=== PATIENT | female | born 1950 | race Caucasian/White ===

== ENCOUNTER 2020-07-04 23:14 | Inpatient (IN) ==
[2020-07-04] MEDS ORDERED: Nitroglycerin 0.4 MG TAB.SUBL SL ONE (23:39)
[2020-07-04 23:44] LABS: Basophils # 0.1 K/mcL (0.0-0.2); Basophils % 0.8 %; Eosinophils # 0.2 K/mcL (0.0-0.6); Eosinophils % 2.5 %; Hematocrit 39.1 % (35.3-44.9); Hemoglobin 12.3 g/dL (11.5-15.4); Immature Granulocytes % 0.1 % (0-4); Lymphocytes # 2.3 K/mcL (0.6-4.6); Lymphocytes % 29.4 %; Mean Corpuscular HGB Conc 31.5 g/dL (31.6-35.5); Mean Corpuscular Hemoglobin 29.1 pg (28.0-33.3); Mean Corpuscular Volume 92.7 fL (83.0-100.0); Mean Platelet Volume 9.6 fL (9.4-12.4); Monocytes # 0.6 K/mcL (0.0-1.3); Monocytes % 7.5 %; Neutrophils # 4.6 K/mcL (1.6-8.9); Platelet Count 216 K/mcL (140-400); Red Blood Count 4.22 M/mcL (3.82-4.97); Red Cell Distribution Width 13.3 % (11.5-14.5); Segmented Neutrophils % 59.7 %; White Blood Count 7.7 K/mcL (4.3-11.1)
[2020-07-05 00:02] LABS: BUN/Creatinine Ratio 21 (6-26); Blood Urea Nitrogen 19 mg/dL (8-23); Calcium 9.1 mg/dL (8.6-10.3); Carbon Dioxide 24 mEq/L (23-29); Chloride 105 mEq/L (98-107); Glucose 125 mg/dL (70-105); Osmolality,Calculated 288 (280-300); Potassium 5.3 mEq/L (3.5-5.1); Sodium 137 mEq/L (136-145); Troponin I < 0.03 ng/mL (< 0.04); eGFR For African Americans > 60 (> 60); eGFR For Non-African Americans > 60 (> 60)
[2020-07-05] MEDS ORDERED: *HR* HYDROcodone/Acet 5/325 mg TABLET PO PRN (01:52)
[2020-07-05] MEDS ORDERED: Ondansetron 4 MG/2 ML VIAL IVP PRN (01:52)
[2020-07-05] MEDS ORDERED: Acetaminophen 325 MG TABLET PO PRN (01:52)
[2020-07-05] MEDS ORDERED: Naloxone 0.4 MG/ML INJ IVP PRN (01:52)
[2020-07-05] MEDS ORDERED: *HR* OxyCODONE Immed Rel 5 MG TABLET PO PRN (01:52)
[2020-07-05] MEDS ORDERED: Melatonin 3 MG TABLET PO PRN (01:52)
[2020-07-05] MEDS ORDERED: Furosemide 20 MG/2 ML VIAL IVP ONE (03:17)
[2020-07-05 05:17] LABS: Basophils % 0.5 %; Eosinophils # 0.1 K/mcL (0.0-0.6); Eosinophils % 1.5 %; Hematocrit 37.2 % (35.3-44.9); Hemoglobin 11.8 g/dL (11.5-15.4); Immature Granulocytes % 0.2 % (0-4); Lymphocytes # 1.6 K/mcL (0.6-4.6); Lymphocytes % 27.8 %; Mean Corpuscular HGB Conc 31.7 g/dL (31.6-35.5); Mean Corpuscular Hemoglobin 29.2 pg (28.0-33.3); Mean Corpuscular Volume 92.1 fL (83.0-100.0); Mean Platelet Volume 9.6 fL (9.4-12.4); Monocytes # 0.5 K/mcL (0.0-1.3); Monocytes % 7.8 %; Neutrophils # 3.7 K/mcL (1.6-8.9); Platelet Count 181 K/mcL (140-400); Red Blood Count 4.04 M/mcL (3.82-4.97); Red Cell Distribution Width 13.3 % (11.5-14.5); Segmented Neutrophils % 62.2 %; White Blood Count 5.9 K/mcL (4.3-11.1)
[2020-07-05 05:23] LABS: Prothrombin Time 11.9 Seconds (9.4-12.1)
[2020-07-05 05:35] LABS: BUN/Creatinine Ratio 23 (6-26); Blood Urea Nitrogen 19 mg/dL (8-23); Calcium 9.4 mg/dL (8.6-10.3); Carbon Dioxide 26 mEq/L (23-29); Chloride 106 mEq/L (98-107); Chol/HDL Ratio 3.1 (0-4.9); Cholesterol 134 mg/dL (< 200); Glucose 105 mg/dL (70-105); HDL Cholesterol 43 mg/dL (40-59); LDL Cholesterol,Calculated 75 mg/dL (< 100); Osmolality,Calculated 291 (280-300); Phosphorous 3.7 mg/dL (2.7-4.5); Potassium 4.1 mEq/L (3.5-5.1); Sodium 139 mEq/L (136-145); Triglycerides 80 mg/dL (< 150); eGFR For African Americans > 60 (> 60); eGFR For Non-African Americans > 60 (> 60)
[2020-07-05 05:38] LABS: Troponin I 0.31 ng/mL (< 0.04)
[2020-07-05] MEDS ORDERED: *HR* Heparin 5,000 UNIT/ML VIAL IVP ONE (05:41)
[2020-07-05] MEDS ORDERED: *HR* Heparin 5,000 UNIT/ML VIAL IVP PRN ×2 (05:41)
[2020-07-05] MEDS ORDERED: Perflutren Lipid Microsphere 1.3 ML in 0.9 % Sodium Chloride 8.7 ML IVP PRN (05:43)
[2020-07-05] MEDS: Heparin 25,000UNIT/250ML 1/2NS 25,000 UNIT/250 ML IV.SOLN IVC SCH (06:16)
[2020-07-05] MEDS: Aspirin Enteric Coated 81 MG Tablet PO SCH (10:14)
[2020-07-05] MEDS: carvediloL 6.25 MG TABLET PO SCH ×2 (10:14→17:13)
[2020-07-05] MEDS: Gabapentin 100 MG CAPSULE PO SCH ×3 (10:14→20:33)
[2020-07-05] MEDS ORDERED: Gabapentin 100 MG CAPSULE PO SCH (15:00)
[2020-07-05 16:03] LABS: Estimated Average Glucose 128 mg/dl; Hemoglobin A1C 6.1 %
[2020-07-05] MEDS ORDERED: carvediloL 6.25 MG TABLET PO SCH (17:00)
[2020-07-06] MEDS: carvediloL 6.25 MG TABLET PO SCH ×2 (09:18→16:21)
[2020-07-06] MEDS: Gabapentin 100 MG CAPSULE PO SCH ×3 (09:18→21:20)
[2020-07-06] MEDS: Aspirin Enteric Coated 81 MG Tablet PO SCH (09:18)
[2020-07-06] MEDS ORDERED: *HR* LORazepam 0.5 MG TABLET PO SCH (21:00)
[2020-07-06] MEDS: Heparin 25,000UNIT/250ML 1/2NS 25,000 UNIT/250 ML IV.SOLN IVC SCH (23:58)
[2020-07-07 08:54] LABS: Basophils % 0.7 %; Eosinophils # 0.2 K/mcL (0.0-0.6); Eosinophils % 2.7 %; Hematocrit 39.9 % (35.3-44.9); Immature Granulocytes % 0.2 % (0-4); Lymphocytes # 1.4 K/mcL (0.6-4.6); Lymphocytes % 24.3 %; Mean Corpuscular HGB Conc 32.6 g/dL (31.6-35.5); Mean Corpuscular Hemoglobin 29.5 pg (28.0-33.3); Mean Corpuscular Volume 90.7 fL (83.0-100.0); Mean Platelet Volume 9.6 fL (9.4-12.4); Monocytes # 0.5 K/mcL (0.0-1.3); Monocytes % 9.1 %; Neutrophils # 3.6 K/mcL (1.6-8.9); Platelet Count 179 K/mcL (140-400); Red Cell Distribution Width 13.2 % (11.5-14.5); White Blood Count 5.6 K/mcL (4.3-11.1)
[2020-07-07 09:11] LABS: BUN/Creatinine Ratio 21 (6-26); Blood Urea Nitrogen 19 mg/dL (8-23); Carbon Dioxide 31 mEq/L (23-29); Chloride 104 mEq/L (98-107); Glucose 104 mg/dL (70-105); Osmolality,Calculated 289 (280-300); Potassium 4.3 mEq/L (3.5-5.1); Sodium 138 mEq/L (136-145); eGFR For African Americans > 60 (> 60); eGFR For Non-African Americans > 60 (> 60)
[2020-07-07] MEDS: carvediloL 6.25 MG TABLET PO SCH ×2 (09:36→15:44)
[2020-07-07] MEDS: Gabapentin 100 MG CAPSULE PO SCH ×2 (09:36→15:44)
[2020-07-07] MEDS: Aspirin Enteric Coated 81 MG Tablet PO SCH (09:37)
[2020-07-07] MEDS ORDERED: *HR* Heparin 10,000 UNIT/10 ML VIAL ONE (12:33)
[2020-07-07] MEDS ORDERED: Nitroglycerin 1,000 MCG/5 ML VIAL IV ONE (12:33)
[2020-07-07] MEDS ORDERED: Heparin 1,000 UNITS/500 mL 500 ML ONE (12:33)
[2020-07-07] MEDS ORDERED: ISOVUE-370 200 ML INFUS..BTL ONE (12:33)
[2020-07-07] MEDS ORDERED: 0.9 % Sodium Chloride 2,000 ML ONE (12:33)
[2020-07-07] MEDS ORDERED: *HR* FentaNYL (PF) 100 MCG/2 ML VIAL ONE (13:38)
[2020-07-07] MEDS ORDERED: *HR* Midazolam HCl 2 MG/2 ML VIAL ONE (13:38)
[2020-07-07] MEDS ORDERED: *HR* Bivalirudin 250 MG VIAL IVC ONE (13:38)
[2020-07-07] MEDS: Heparin 25,000UNIT/250ML 1/2NS 25,000 UNIT/250 ML IV.SOLN IVC SCH (15:40)
[2020-07-07 15:47] VITALS: BP 173/84
== END 2020-07-07 17:40 | disposition home or self-care (01) | DRG 281 ==
LOC: 3BNU 23:14 → EMEROOARM 23:14 → SUATTDRO 07-05 01:28 → 3BNU 07-05 02:32
PROVIDERS: ADMIT Family Medicine; ATTEND Registered Nurse